=== PATIENT | female | born 1950 | race Caucasian/White ===

== ENCOUNTER 2019-05-04 03:09 | Emergency (ER) | payer OTHER, BC ==
[~2019-05-04] VITALS: Ht 152.4 cm; Wt 73.5 kg
[~2019-05-04 03:09] MED LIST: CALCIUM 600 +1 EAC1 PO; CARDURA2 MG PO; CARVEDILOL25 MG PO; CO Q-10100 MG PO; COUMADIN 2 MG TA2 M1 PO; CYMBALTA30 MG PO; DOXAZOSIN MESYLA2 MG PO; FISH OIL 1,001000 M2 PO; HAIR, SKIN & N1 EAC2 PO; HYDROCHLOROTHIA50 MG PO; HYDROCODON-ACE1 EAC7 PO; KLONOPIN0.5 MG PO; KLOR-CON M1010 MEQ PO; NEURONTIN 300300 M1 PO; NEURONTIN 300M300 M2 PO; NORVASC5 MG PO; OMEPRAZOLE40 MG PO; OXYCONTIN20 M1 PO; PERCOCET 7.5-31 EACH PO; TRAMADOL 50 MG50 MG PO; TRAZODONE 150150 M1 PO; TROSPIUM CHLORI20 MG PO; UNICOMPLEX M TA1 TA1 PO; VITAMIN D1000 UNI2 PO
[2019-05-04 03:39] LABS: ABSOLUTE NEUTROPHILS 9.2 thou/uL (1.4-8.2); BASOPHILS 0.9 % (0.0-2.0); EOSINOPHILS 0.4 % (0.0-3.0); HEMATOCRIT 33.4 % (37.0-47.0); HEMOGLOBIN 11.5 gm/dL (12.0-15.0); LYMPHOCYTES 17.3 % (24.0-44.0); MCH 30.4 pg (26.0-34.0); MCHC 34.6 g/dL (28.0-37.0); MCV 87.9 fL (80.0-100.0); MONOCYTES 7.6 % (1.0-8.0); PLATELET COUNT 253 thou/uL (150-400); POLYS 73.8 % (36.0-66.0); RDW 15.3 % (10.5-14.5); WBC 12.5 thou/uL (4.0-11.0)
[2019-05-04 03:48] LABS: ANION GAP 13 mmol/L (7-16); BUN 42 mg/dL (7-18); CALCIUM 9.3 mg/dL (8.5-10.1); CHLORIDE 105 mmol/L (98-107); CO2 24 mmol/L (21-32); CREATININE 1.7 mg/dL (0.6-1.0); GLUCOSE 166 mg/dL (74-106); POTASSIUM 3.7 mmol/L (3.5-5.1); SODIUM 142 mmol/L (136-145)
[2019-05-04 03:57] LABS: TROPONIN-I <0.06 ng/mL (<0.06)
[2019-05-04 05:00] VITALS: BP 143/68
--- NOTE | 2019-05-06 17:27 | EKG ---
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 : 1950 Requested By: Rajinder Meza Order Number: [id number] MD: Sam Carias Measurements Intervals [place] Rate: 131 P: [place]: QRS: -42 QRSD: 90 T: 88 QT: 354 QTc: 523 Interpretive Statements Atrial fibrillation rapid ventricular response Left axis deviation Left anterior fascicular block LVH with secondary repolarization abnormality Compared to ECG 02/06/2014 08:59:04 Left anterior fascicular block now present Left ventricular hypertrophy now present Sinus rhythm no longer present Electronically Signed On 05-06-2019 17:27:27 CDT by Sam Carias [email or web address] ��������������������������������������������� <ELECTRONICALLY SIGNED> ���������������������������������������� By: Sam Carias MD ��������������������������������������������� 05/06/19 1727 0316 Sam Carias MD /EPI
--- NOTE | 2019-05-06 17:29 | EKG ---
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1950 Requested By: Rajinder Meza Order Number: [id number] MD: Sam Carias Measurements Intervals [place] Rate: 67 P: 56 [place]: 180 QRS: -41 QRSD: 94 T: 74 QT: 460 QTc: 486 Interpretive Statements Sinus rhythm left atrial enlargement Left axis deviation Borderline left anterior fascicular block LVH with secondary repolarization abnormality Compared to ECG 02/06/2014 08:59:04 Atrial fibrillation no longer present Electronically Signed On 05-06-2019 17:29:07 CDT by Sam Carias [email or web address] ��������������������������������������������� <ELECTRONICALLY SIGNED> ���������������������������������������� By: Sam Carias MD ��������������������������������������������� 05/06/19 1729 0350 0350 Sam Carias MD /EPI
== END 2019-05-04 05:04 | disposition home or self-care (01) ==
LOC: ER 03:09
PROVIDERS: Emergency Medicine
DX: I48.0 Paroxysmal atrial fibrillation (principal); R91.8 Other nonspecific abnormal finding of lung field; M79.7 Fibromyalgia; K21.9 Gastro-esophageal reflux disease without esophagitis; F32.9 Major depressive disorder, single episode, unspecified; F41.9 Anxiety disorder, unspecified; Z98.51 Tubal ligation status; Z88.2 Allergy status to sulfonamides

== ENCOUNTER 2019-05-08 23:32 | Inpatient (IN) | payer OTHER, BC ==
[~2019-05-08] VITALS: Ht 152.4 cm; Wt 79.5 kg
[2019-05-08 23:43] VITALS: BP 96/36
[2019-05-09] VITALS (8 sets, daily range): BP systolic 104–147; BP diastolic 40–54
[2019-05-09 00:21] LABS: ABSOLUTE NEUTROPHILS 7.5 thou/uL (1.4-8.2); BASOPHILS 0.6 % (0.0-2.0); EOSINOPHILS 1.1 % (0.0-3.0); HEMATOCRIT 30.3 % (37.0-47.0); HEMOGLOBIN 10.3 gm/dL (12.0-15.0); LYMPHOCYTES 18.3 % (24.0-44.0); MCH 30.2 pg (26.0-34.0); MCHC 33.9 g/dL (28.0-37.0); MCV 88.9 fL (80.0-100.0); MONOCYTES 7.5 % (1.0-8.0); PLATELET COUNT 206 thou/uL (150-400); POLYS 72.5 % (36.0-66.0); RBC 3.41 mil/uL (4.20-5.00); RDW 14.7 % (10.5-14.5); WBC 10.3 thou/uL (4.0-11.0)
[2019-05-09 00:34] LABS: CALCIUM 8.7 mg/dL (8.5-10.1); CREATININE 2.3 mg/dL (0.6-1.0); TROPONIN-I 0.07 ng/mL (<0.06)
[2019-05-09] MEDS ORDERED: COREG25 MG PO (01:24)
[2019-05-09] MEDS ORDERED: XARELTO20 MG PO (01:24)
[2019-05-09] MEDS ORDERED: BUPROPION HCL150 MG PO (01:25)
[2019-05-09] MEDS ORDERED: CLONAZEPAM 0.50.5 M1 PO (01:25)
--- NOTE | 2019-05-09 01:25 | EKG ---
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1950 Requested By: Rajinder Meza Order Number: [id number] MD: Sam Carias Measurements Intervals [place] Rate: 60 P: 53 [place]: 161 QRS: -34 QRSD: 93 T: 69 QT: 472 QTc: 472 Interpretive Statements Sinus rhythm left atrial enlargement Left ventricular hypertrophy Compared to ECG 05/04/2019 03:50:00 no significant changes Electronically Signed On 05-09-2019 1:25:13 CDT by Sam Carias [email or web address] ��������������������������������������������� <ELECTRONICALLY SIGNED> ���������������������������������������� By: Sam Carias MD ��������������������������������������������� 05/09/19 0125 2343 2343 Sam Carias MD /KWAME
[2019-05-09] MEDS ORDERED: LASIX 20 MG TAB20 MG PO (01:26)
[2019-05-09] MEDS ORDERED: ARMODAFINIL150 MG PO (01:26)
[2019-05-09] MEDS ORDERED: TRAZODONE 150150 M1 PO (01:27)
[2019-05-09] MEDS ORDERED: CYMBALTA60 MG PO (01:28)
[2019-05-09] MEDS ORDERED: TRELEGY ELLIPT1 EACH INH (01:28)
[2019-05-09] MEDS ORDERED: LIPITOR40 MG PO (01:29)
[2019-05-09] MEDS ORDERED: OLMESARTAN MEDO20 MG PO (01:29)
[2019-05-09 01:42] LABS: URINE BILIRUBIN NEGATIVE (Negative); URINE BLOOD NEGATIVE (Negative); URINE CLARITY CLEAR; URINE COLOR YELLOW; URINE GLUCOSE-RANDOM* NEGATIVE (Negative); URINE KETONES NEGATIVE (Negative); URINE LEUKOCYTES-REFLEX TRACE (Negative); URINE NITRITE-REFLEX NEGATIVE (Negative); URINE PROTEIN (DIPSTICK) 1+ (Negative); URINE SPECIFIC GRAVITY 1.015 (1.005-1.035); URINE UROBILINOGEN 0.2 E.U./dl (0.2-1.0)
[2019-05-09 02:00] LABS: CASTS None Seen /LPF (None Seen); MUCUS 0-3 Light strn/LPF (None Seen); SQUAMOUS None Seen /LPF (0-3); URINE WBC-REFLEX None Seen /HPF (0-5)
[2019-05-09 02:01] LABS: BACTERIA-REFLEX 1-9 Few /HPF (None Seen); CRYSTALS None Seen /LPF (None Seen); URINE RBC None Seen /HPF (0-2)
--- NOTE | 2019-05-09 04:00 | NUR ---
PT ARRIVED IN CCU FROM ER AT 0335. PT DENIES ANY CHEST PAIN. PT A&O AND DENIED AN DISTRESS OR SOA; PT IS ON RA. NO COMPLAINTS OF CHEST PAIN THE REST OF THE MORNING. FLUIDS STARTED. ECHO ORDERED FOR TODAY. WILL CONTINUE TO MONITOR.
[2019-05-09 06:22] LABS: CALCIUM 8.7 mg/dL (8.5-10.1); CREATININE 2.3 mg/dL (0.6-1.0); POTASSIUM 4.1 mmol/L (3.5-5.1)
--- NOTE | 2019-05-09 09:07 | NUR ---
LAKHWINDER INFORMED ME SHE HAD ULTAM IN HER PURSE. SENT TO PHARMACY FOR LOCKUP AND WILL RETURN TO PATIENT WHEN SHE IS DISCAHRGED.
--- NOTE | 2019-05-09 10:54 | NUR ---
PT OFF UNIT TO ECHO.
--- NOTE | 2019-05-09 12:00 | NUR ---
pt back fromo echo
--- NOTE | 2019-05-09 12:57 | 2DMMODE ---
[facility] [address] [place] [address] 2 D/M-MODE ECHOCARDIOGRAM Name: VIMAL STOLL Room #: 210-P ADM IN ..#: [id number] ������������� Admission: 05/09/19 ������������� Attend Phys: Robin Mendieta MD Discharge: ��� ������������� ��� Date of : 50 Date of Service: 05/09/19 1257 �� Report #: [id number] �������� ��������������������������������������������[id number] THIS REPORT FOR: //name// APPROVED REPORT Study performed: 05/09/2019 11:03:46 EXAM: Comprehensive 2D, Doppler, and color-flow Echocardiogram Patient Location: Echo lab Room #: 210 Status: routine BSA: 1.72 HR: 66 bpm BP: 138/54 mmHg Rhythm: NSR Other Information Study Quality: Good Indications Elevated troponin, chest pain, Aortic stenosis. Hx: CHF, Afib 2D Dimensions RVDd: 38.71 mm IVSd: 15.33 (7-11mm) LVOT Diam: 20.05 (18-24mm) LVDd: 42.84 mm PWd: 15.29 (7-11mm) Ascending Ao: 28.15 (22-36mm) LVDs: 21.81 (25-40mm) Aortic Root: 32.79 mm Volumes Left Atrial Volume (Systole) Single Plane 4CH: 85.22 mL Single Plane 2CH: 79.08 mL LA ESV Index: 50.00 mL/m2 Aortic Valve AoV Peak Meliton.: 3.82 m/s AO Peak Gr.: 58.28 mmHg LVOT Max P.31 mmHg AO Mean Gr.: 31.71 mmHg AO V2 Mean: 2.64 m/s LVOT Max V: 1.35 m/s AO V2 VTI: 89.04 cm DANITA Vmax: 1.12 cm2 Mitral Valve E/A Ratio: 1.2 [facility] [place] [address] 2 D/M-MODE ECHOCARDIOGRAM Name: VIMAL STOLL Room #: 210-P [facility] IN ..#: [id number] ������������� Admission: 05/09/19 ������������� Attend Phys: Robin Mendieta MD Discharge: ��� ������������� ��� Date of : 50 Date of Service: 05/09/19 1257 �� Report #: [id number] �������� ��������������������������������������������[id number] MV Decel. Time: 261.33 ms MV E Max Meliton.: 1.42 m/s MV A Meliton.: 1.19 m/s MV PHT: 75.79 ms IVRT: 73.82 ms Pulmonary Valve PV Peak Meliton.: 1.10 m/s PV Peak Gr.: 4.84 mmHg Tricuspid Valve TR Peak Meliton.: 2.92 m/s RAP Estimate: 5.00 mmHg TR Peak Gr.: 34.07 mmHg PA Pressure: 39.00 mmHg Left Ventricle The left ventricle is normal size. There is normal LV segmental wall motion. Moderate concentric left ventricular hypertrophy. Left ventricular systolic function is normal. LVEF is 65-70%. Moderate diastolic dysfunction is present (pseudonormal filling). Right Ventricle The right ventricle is normal size. The right ventricular systolic function is normal. Atria Left atrium is moderately dilated. The right atrium size is normal. Aortic Valve Aortic valve is moderately calcified. Trace to mild aortic regurgitation. There is moderate valvular aortic stenosis. Calculated aortic valve area is 1.1 cm2 with maximum pressure gradient of 58 mmHg and mean pressure gradient of 32 mmHg. Mitral Valve Moderate mitral annular calcification. Trace mitral regurgitation. No evidence of mitral valve stenosis. Tricuspid Valve The tricuspid valve is normal in structure. Trace to mild tricuspid regurgitation. Estimated PAP is 40mmHg. Pulmonic Valve The pulmonary valve is normal in structure. Trace pulmonic regurgitation. [facility] [address] [place] [address] 2 D/M-MODE ECHOCARDIOGRAM Name: VIMAL STOLL Room #: 210-P [facility] IN [facility]#: [id number] ������������� Admission: 05/09/19 ������������� Attend Phys: Robin Mendieta MD Discharge: ��� ������������� ��� Date of : 50 Date of Service: 05/09/19 1257 �� Report #: [id number] �������� ��������������������������������������������[id number] [employer] The aortic root is normal in size. The ascending aorta is normal in size. IVC is normal in size and collapses >50% with inspiration. Pericardium There is no pericardial effusion. <Conclusion> Left ventricular systolic function is normal. There is normal LV segmental wall motion. LVEF is 65-70%. Moderate diastolic dysfunction Left atrium is moderately dilated. Aortic valve is moderately calcified, moderately stenotic. Calculated aortic valve area is 1.1 cm2 with maximum pressure gradient of 58 mmHg and mean pressure gradient of 32 mmHg. Moderate mitral annular calcification. Trace mitral regurgitation. Trace to mild tricuspid regurgitation. Estimated pulmonary artery pressure of 40mmHg. There is no pericardial effusion. ��������������������������������������������� <ELECTRONICALLY SIGNED> ���������������������������������������� By: Low Hsu MD, FACC ��������������������������������������������� 05/09/19 1257 1257 1257 Low Hsu MD, FACC /INF
--- NOTE | 2019-05-09 18:00 | NUR ---
PT HAD LOOP MONITOR PLACED AT BEDSIDE TODAY. TOLERATING PO WELL. WILL CONTINUE TO ASSESS.
[2019-05-10 03:51] VITALS: BP 150/59
--- NOTE | 2019-05-10 06:00 | NUR ---
PT SLEPT MOST OF NOCT. LEFT CHEST DSG DRY AND INTACT. LUNGS CLEAR REMAINS IN SINUS RHYTHM. UP TO TOILET. VOIDING. DENIES CHEST PAIN NOR SOA WILL CONT TO MONITOR.
[2019-05-10 07:26] VITALS: BP 163/33
[2019-05-10 12:21] VITALS: BP 172/60
[2019-05-10] MEDS ORDERED: XARELTO15 MG PO (12:46)
[2019-05-10] MEDS ORDERED: CARVEDILOL12.5 MG PO (12:49)
[2019-05-10] MEDS ORDERED: FLECAINIDE ACET50 M2 PO (12:49)
[2019-05-10] MEDS ORDERED: ASPIR 8181 MG PO (12:50)
[2019-05-10] MEDS ORDERED: PROTONIX40 M1 PO (12:51)
[2019-05-10 13:07] LABS: CALCIUM 8.5 mg/dL (8.5-10.1); POTASSIUM 4.4 mmol/L (3.5-5.1)
[2019-05-10 13:12] VITALS: BP 172/60
--- NOTE | 2019-05-10 14:17 | NUR ---
ASSUMED CARE OF PT AT SHIFT CHANGE. ASSESSMENTS CHARTED. MEDS GIVEN PER DEC. PT ALERT AND ORIENTED, NO C/O PAIN, DENIES CHEST PAIN, SOB. O2 SATS WNL ON ROOM AIR. UP SBA TOLERATING WELL. LOOP RECORDER SITE CDI. DC ORDERS ACKNOWLEDGED AND IMPLEMEMTED. DC PAPERWORK DISUSSED WITH PT. COMMUNICATES UNDERSTANDING. IV REMOVED TELE REMOVED. PT LEFT UNIT AT APPROX 1400 WITH ALL BELONINGS ACCOMPANIED BY SPOUSE.
--- NOTE | 2019-05-10 18:17 | EKG ---
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 : 1950 Requested By: Meme Ash Order Number: [id number] MD: Low Hsu Measurements Intervals [place] Rate: 63 P: 49 GA: 214 QRS: -35 QRSD: 94 T: 102 QT: 462 QTc: 474 Interpretive Statements Sinus rhythm Borderline prolonged GA interval LVH with secondary repolarization abnormality Compared to ECG 05/08/2019 23:43:16 GA interval has lengthened Electronically Signed On 05-10-2019 18:17:02 CDT by Low Hsu [email or web address] ��������������������������������������������� <ELECTRONICALLY SIGNED> ���������������������������������������� By: Low Hsu MD, [facility] ��������������������������������������������� 05/10/19 1817 1 1 Low Hsu MD, [facility] /EPI
--- NOTE | 2019-05-11 12:10 | P ---
[facility] [place] [address] PROCEDURE REPORT Name: ALICIA STOLLLorri Kerns Room #: 210-P [facility] IN ..#: [id number] Admission: 05/09/19 ������������������ Attend Phys: Robin Mendieta MD Discharge: 05/10/19 ������������������ Date of : 50 Report #: [id number] THIS REPORT FOR: //name// CC: Serge Mendieta DATE OF SERVICE: 05/09/2019 IMPLANTABLE LOOP RECORDER INSERTION PREOPERATIVE DIAGNOSIS: Palpitations. POSTOPERATIVE DIAGNOSIS: Palpitations. HISTORY: The patient is a 68-year-old with history of atrial fibrillation who presented to the Emergency Room twice in the past week with palpitations and has been in normal sinus rhythm. She is here for implantable loop recorder insertion. DESCRIPTION OF PROCEDURE: The patient underwent informed consent. She was prepped and draped in a sterile fashion. I injected lidocaine at the incision site. Incision was made. The device was injected under the skin and a single layer of suture was performed. Surgical glue was placed at the outer skin layer. There were no procedure related complications. The implanted device was a [employer] model number [id number], serial number [id number]. The device was programmed to its nominal settings. ��������������������������������������������� <ELECTRONICALLY SIGNED> ���������������������������������������� By: Josh Carpenter MD ��������������������������������������������� 05/11/19 1210 1322 0308 Josh Carpenter MD /nt
== END 2019-05-10 13:57 | disposition home or self-care (01) | DRG 260 ==
LOC: ER 23:32 → 2N 05-09 02:14 → EROBS 05-09 02:14 → 2N 05-09 03:39 → ENTRNSPT 05-10 13:49 → EDTRNSPTSTS 05-10 13:51 → 2N 05-10 13:57
PROVIDERS: Emergency Medicine; Nurse Practitioner; Nurse Practitioner Family; ADMIT Hospitalist
PROC: 0JH602Z Insertion of Monitoring Device into Chest Subcutaneous Tissue and Fascia, Open Approach (ICD-10-PCS; principal; 2019-05-09)
DX: I48.0 Paroxysmal atrial fibrillation (principal); N17.0 Acute kidney failure with tubular necrosis; K21.9 Gastro-esophageal reflux disease without esophagitis; M79.7 Fibromyalgia; F32.9 Major depressive disorder, single episode, unspecified; F41.9 Anxiety disorder, unspecified; E78.5 Hyperlipidemia, unspecified; I35.0 Nonrheumatic aortic (valve) stenosis; N18.9 Chronic kidney disease, unspecified; E11.22 Type 2 diabetes mellitus with diabetic chronic kidney disease; I12.9 Hypertensive chronic kidney disease with stage 1 through stage 4 chronic kidney disease, or unspecified chronic kidney disease; E11.51 Type 2 diabetes mellitus with diabetic peripheral angiopathy without gangrene; Z90.49 Acquired absence of other specified parts of digestive tract; Z93.3 Colostomy status; Z79.01 Long term (current) use of anticoagulants; Z79.899 Other long term (current) drug therapy; Z88.2 Allergy status to sulfonamides; Z87.01 Personal history of pneumonia (recurrent)
CPT/HCPCS: 10081

== ENCOUNTER 2019-05-24 15:03 | Inpatient (IN) | payer OTHER, BC ==
[~2019-05-24] VITALS: Ht 157.5 cm; Wt 79.2 kg
[~2019-05-24 15:03] MED LIST changes: +ARMODAFINIL150 MG PO; +ASPIR 8181 MG PO; +BUPROPION HCL150 MG PO; +CARVEDILOL12.5 MG PO; +CLONAZEPAM 0.50.5 M1 PO; +COREG25 MG PO; +CYMBALTA60 MG PO; +FLECAINIDE ACET50 M2 PO; +LASIX 20 MG TAB20 MG PO; +LIPITOR40 MG PO; +OLMESARTAN MEDO20 MG PO; +PROTONIX40 M1 PO; +TRELEGY ELLIPT1 EACH INH; +XARELTO15 MG PO; +XARELTO20 MG PO
[2019-05-24 15:48] VITALS: BP 105/31
[2019-05-24] MEDS ORDERED: NEURONTIN 300300 M1 (16:30)
[2019-05-24] MEDS ORDERED: CARDURA4 MG PO (16:40)
[2019-05-24] MEDS ORDERED: TYLENOL325 MG PO (16:41)
[2019-05-24] MEDS ORDERED: TRAMADOL 50 MG50 MG PO (16:42)
[2019-05-24 18:08] LABS: ABSOLUTE NEUTROPHILS 6.3 thou/uL (1.4-8.2); BASOPHILS 0.6 % (0.0-2.0); EOSINOPHILS 2.2 % (0.0-3.0)
[2019-05-24 18:09] LABS: LYMPHOCYTES 10.2 % (24.0-44.0); MCH 29.4 pg (26.0-34.0); MCHC 33.1 g/dL (28.0-37.0); MCV 88.9 fL (80.0-100.0); MONOCYTES 8.6 % (1.0-8.0); PLATELET COUNT 249 thou/uL (150-400); POLYS 78.4 % (36.0-66.0); RBC 2.12 mil/uL (4.20-5.00); RDW 14.8 % (10.5-14.5)
[2019-05-24 18:12] LABS: HEMATOCRIT 18.8 % (37.0-47.0); HEMOGLOBIN 6.2 gm/dL (12.0-15.0)
[2019-05-24 18:24] LABS: ALBUMIN 2.8 g/dL (3.4-5.0); CALCIUM 9.2 mg/dL (8.5-10.1); CREATININE 2.1 mg/dL (0.6-1.0); POTASSIUM 4.5 mmol/L (3.5-5.1); TOTAL BILIRUBIN 0.3 mg/dL (<0.1-1.0); TOTAL PROTEIN 6.1 g/dL (6.4-8.2); TROPONIN-I 0.25 ng/mL (<0.06)
[2019-05-24 19:50] VITALS: BP 105/54
[2019-05-24 22:37] VITALS: BP 140/44; BP 147/52
[2019-05-24 22:55] LABS: % SATURATION 8 % (20-39); IRON 22 ug/dL (50-170); TIBC 269 ug/dL (250-450)
[2019-05-24 23:49] LABS: FOLIC ACID 85.1 ng/mL (8.6-58.9)
[2019-05-25] VITALS (7 sets, daily range): BP systolic 104–147; BP diastolic 33–48
[2019-05-25 06:35] LABS: ABSOLUTE NEUTROPHILS 8.1 thou/uL (1.4-8.2); BASOPHILS 1.3 % (0.0-2.0); EOSINOPHILS 1.3 % (0.0-3.0); HEMATOCRIT 20.9 % (37.0-47.0); HEMOGLOBIN 7.1 gm/dL (12.0-15.0); LYMPHOCYTES 6.8 % (24.0-44.0); MCH 29.2 pg (26.0-34.0); MCHC 33.9 g/dL (28.0-37.0); MCV 86.2 fL (80.0-100.0); MONOCYTES 7.7 % (1.0-8.0); PLATELET COUNT 260 thou/uL (150-400); POLYS 82.9 % (36.0-66.0); RBC 2.42 mil/uL (4.20-5.00); RDW 15.6 % (10.5-14.5); WBC 9.8 thou/uL (4.0-11.0)
[2019-05-25 06:57] LABS: CALCIUM 9.2 mg/dL (8.5-10.1); CREATININE 2.3 mg/dL (0.6-1.0); POTASSIUM 4.1 mmol/L (3.5-5.1); TROPONIN-I 0.19 ng/mL (<0.06)
--- NOTE | 2019-05-25 08:47 | EKG ---
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1950 Requested By: Evon Giron Order Number: [id number] MD: Low Hsu Measurements Intervals [place] Rate: 83 P: 51 [place]: 188 QRS: -37 QRSD: 100 T: 132 QT: 421 QTc: 495 Interpretive Statements Sinus rhythm Abnormal R-wave progression, late transition Nonspecific ST and T wave abnormality Borderline prolonged QT interval Compared to ECG 05/09/2019 07:22:49 ST and T wave abnormality is more pronounced Electronically Signed On 05-25-2019 8:47:48 CDT by Low Hsu [email or web address] <ELECTRONICALLY SIGNED> By: Low Hsu MD, [facility] 05/25/19 0847 Low Hsu MD, [facility] /EPI
[2019-05-25] MEDS ORDERED: COREG25 MG PO (11:04)
[2019-05-25] MEDS ORDERED: MAGOX 400400 MG PO (11:06)
[2019-05-25] MEDS ORDERED: NORVASC5 MG PO (11:06)
[2019-05-25] MEDS ORDERED: GLUCOPHAGE XR500 MG PO (11:07)
[2019-05-25] MEDS ORDERED: ZETIA10 MG PO (11:07)
[2019-05-25] MEDS ORDERED: KLOR-CON 1010 MEQ PO (11:07)
[2019-05-25 15:46] LABS: URINE BILIRUBIN NEGATIVE (Negative); URINE BLOOD NEGATIVE (Negative); URINE CLARITY CLEAR; URINE COLOR YELLOW; URINE GLUCOSE-RANDOM* NEGATIVE (Negative); URINE KETONES NEGATIVE (Negative); URINE LEUKOCYTES NEGATIVE (Negative); URINE NITRITE NEGATIVE (Negative); URINE PROTEIN (DIPSTICK) 1+ (Negative); URINE UROBILINOGEN 0.2 E.U./dl (0.2-1.0)
[2019-05-25 15:55] LABS: CASTS None Seen /LPF (None Seen); SQUAMOUS 0-3 Few /LPF (0-3); URINE RBC None Seen /HPF (0-2); URINE WBC 0-5 Rare /HPF (0-5)
[2019-05-25 15:56] LABS: AMORPHOUS URATES Few /LPF (None Seen); BACTERIA None Seen /HPF (None Seen)
[2019-05-25 16:00] LABS: PROT/CREAT RATIO 3.9; URINE CREATININE-RANDOM* 43.3 mg/dL; URINE PROTEIN-RANDOM* 167.3 mg/dL (<11.9)
[2019-05-25 21:20] LABS: COMPLEMENT-C3 181 mg/dL (82-167); COMPLEMENT-C4 54 mg/dL (14-44)
[2019-05-25 22:26] LABS: HEMATOCRIT 18.9 % (37.0-47.0); HEMOGLOBIN 6.3 gm/dL (12.0-15.0)
[2019-05-26] VITALS (7 sets, daily range): BP systolic 104–149; BP diastolic 40–81
[2019-05-26 05:58] LABS: HEMATOCRIT 22.1 % (37.0-47.0); HEMOGLOBIN 7.4 gm/dL (12.0-15.0); MCH 29.4 pg (26.0-34.0); MCHC 33.5 g/dL (28.0-37.0); MCV 87.8 fL (80.0-100.0); RBC 2.52 mil/uL (4.20-5.00); RDW 15.3 % (10.5-14.5); WBC 8.5 thou/uL (4.0-11.0)
[2019-05-26 06:06] LABS: ALBUMIN 2.2 g/dL (3.4-5.0); CALCIUM 8.5 mg/dL (8.5-10.1); CREATININE 1.9 mg/dL (0.6-1.0); PHOSPHORUS 5.5 mg/dL (2.5-4.9); POTASSIUM 4.5 mmol/L (3.5-5.1)
[2019-05-26 13:07] LABS: ANTI-DNA SCREEN <1 IU/mL (0-9); ANTI-RNP <0.2 AI (0.0-0.9); KAPPA/LAMBDA RATIO 511.23 (0.26-1.65); LAMBDA FREE LIGHT CHAINS 5.7 mg/L (5.7-26.3)
[2019-05-27 04:27] VITALS: BP 122/40
[2019-05-27 04:45] LABS: HEMOGLOBIN 6.5 gm/dL (12.0-15.0); WBC 6.8 thou/uL (4.0-11.0)
[2019-05-27 04:47] LABS: MCH 29.3 pg (26.0-34.0); MCHC 33.8 g/dL (28.0-37.0); MCV 86.7 fL (80.0-100.0); RBC 2.22 mil/uL (4.20-5.00); RDW 15.3 % (10.5-14.5)
[2019-05-27 04:58] LABS: HEMATOCRIT 19.3 % (37.0-47.0)
[2019-05-27 05:20] LABS: ALBUMIN 2.3 g/dL (3.4-5.0); CALCIUM 8.6 mg/dL (8.5-10.1); CREATININE 1.9 mg/dL (0.6-1.0); PHOSPHORUS 4.9 mg/dL (2.5-4.9); POTASSIUM 4.4 mmol/L (3.5-5.1)
[2019-05-27 06:17] VITALS: BP 132/48; BP 144/54; BP 146/50
[2019-05-27 07:56] VITALS: BP 148/51
[2019-05-27 14:07] LABS: GLOBULIN TOTAL 2.4 g/dL (2.2-3.9); M-SPIKE Not Observed g/dL (Not Observed)
[2019-05-27 15:36] VITALS: BP 163/59
[2019-05-27 21:20] VITALS: BP 171/63
[2019-05-28 05:29] LABS: ALBUMIN 2.6 g/dL (3.4-5.0); CALCIUM 8.8 mg/dL (8.5-10.1); CREATININE 1.6 mg/dL (0.6-1.0); POTASSIUM 3.7 mmol/L (3.5-5.1)
[2019-05-28 05:34] VITALS: BP 161/61
[2019-05-28 08:24] LABS: HEMATOCRIT 22.9 % (37.0-47.0); HEMOGLOBIN 7.8 gm/dL (12.0-15.0)
[2019-05-28 11:53] VITALS: BP 171/58
[2019-05-28 16:09] VITALS: BP 130/44
[2019-05-28 19:46] VITALS: BP 150/52
[2019-05-29 04:47] VITALS: BP 137/61
[2019-05-29 05:11] LABS: HEMOGLOBIN 7.5 gm/dL (12.0-15.0); MCH 29.7 pg (26.0-34.0); MCHC 34.2 g/dL (28.0-37.0); MCV 86.8 fL (80.0-100.0); RBC 2.54 mil/uL (4.20-5.00); RDW 15.1 % (10.5-14.5)
[2019-05-29 05:13] LABS: ALBUMIN 2.5 g/dL (3.4-5.0); CALCIUM 8.7 mg/dL (8.5-10.1); CREATININE 1.5 mg/dL (0.6-1.0); PHOSPHORUS 4.7 mg/dL (2.5-4.9); POTASSIUM 3.9 mmol/L (3.5-5.1)
[2019-05-29 08:25] VITALS: BP 152/51
[2019-05-29 12:58] VITALS: BP 147/48
[2019-05-29 15:52] VITALS: BP 167/55
[2019-05-29 19:06] VITALS: BP 169/59
[2019-05-30 03:30] VITALS: BP 160/63
[2019-05-30 05:17] LABS: ALBUMIN 2.6 g/dL (3.4-5.0); CALCIUM 8.9 mg/dL (8.5-10.1); CREATININE 1.7 mg/dL (0.6-1.0); PHOSPHORUS 4.7 mg/dL (2.5-4.9); POTASSIUM 4.1 mmol/L (3.5-5.1)
[2019-05-30 07:50] VITALS: BP 179/68
[2019-05-30 11:25] VITALS: BP 164/56
--- NOTE | 2019-05-30 15:06 | PATH ---
[facility] [place] [address] PATHOLOGY RPT PROCEDURE Name: CRISTINA STOLL Room #: 214-P ADM IN M.R.#: [id number] Admission: 05/24/19 Date of : 50 Discharge: Report #: [id number] Path Case #: [id number] [facility] Accession Number: [id number] . 01 Material submitted: . PART A: small bowel - BX SMALL BOWEL R/O CELIAC DZ PART B: stomach - BX ANTRUM R/O H PYLORI PART C: esophagus - BX DISTAL ESOPHAGUS R/O BARRETTS. Modifiers: distal . 01 Clinical history: . Pre-OP DX: GI bleed Post-OP DX: Esophagitis, gastritis, hiatal hernia . 02 Diagnosis: A. Small bowel, biopsy: - No pathologic diagnosis. - Normal villous architecture. . B. Stomach, antrum, biopsy: - Chronic superficial gastritis, mild. - Intestinal metaplasia present; no evidence of dysplasia. - No evidence of Helicobacter pylori on immunoperoxidase stain. . C. Esophagus, distal, biopsy: - Squamocolumnar epithelium with mild chronic inflammation. - No evidence of intestinal metaplasia. (ANOOP:leonid; 05/30/2019) QTP05/30/2019 . 02 Electronically signed: . Sami Palomino MD, Pathologist NPI- [id number] . 01 Gross description: . A. Received in formalin labeled "[place], Cristina, BX small bowel, rule out celiac," are 2 segments of rowe soft tissue measuring 0.7 x 0.3 x 0.2 cm in aggregate dimensions and ranging from 0.3 to 0.4 cm in maximum dimension. The specimen is submitted entirely in cassette A1. . B. Received in formalin labeled "[place], Cristina, BX antrum, rule out H. pylori," are 3 segments of rowe soft tissue measuring 0.8 x 0.5 x 0.2 cm in aggregate dimensions and measuring 0.3 cm each in maximum dimension. The specimen is submitted entirely in cassette B1. . C. Received in formalin labeled "[place], Cristina, BX distal esophagus, rule out Pulido's," is a single segment of rowe soft tissue measuring 0.3 cm in maximum dimension. The specimen is [place] [address] PATHOLOGY RPT PROCEDURE Name: ALICIA STOLLLorri Kerns Room #: 214-P [facility] M.R.#: [id number] Admission: 05/24/19 Date of : 50 Discharge: Report #: [id number] Path Case #: [id number] C1. (TSD; 05/27/2019) TOB/TOB . 02 Pathologist provided ICD-10: K29.30, K20.9 . 02 CPT . 868989, 455434, 953435, K84906 Specimen Comment: A courtesy copy of this report has been sent to Specimen Comment: [phone], , . Specimen Comment: Report sent to ,DR GUERRERO / DR SANDERS Performed at: 01 [facility] [address], [place] [id number] MD Cornel Bui MD Phone: [phone] Performed at: [address] [facility] [id number] MD Rena Gutierrez MD Phone: [phone]
--- NOTE | 2019-05-30 16:06 | P ---
[facility] [place] [address] PROCEDURE REPORT Name: VIMAL STOLL Room #: 214-P [facility] IN M.R.#: [id number] Admission: 05/24/19 Attend Phys: Josh Carpetner MD Discharge: Date of : 50 Report #: [id number] THIS REPORT FOR: //name// CC: Serge Carpenter BRIEF HISTORY: The patient is a 68-year-old woman with anemia, requiring transfusion. She does have a history of colon polyps. Father had colon cancer. PREOPERATIVE DIAGNOSES: Rectal bleeding, history of colon polyps, family history of colon cancer. POSTOPERATIVE DIAGNOSES: 1. Diminutive colon polyps. 2. Moderate sigmoid diverticulosis coli. 3. Deformed cecum consistent with previous surgery. MEDICATIONS: Deep sedation with propofol per anesthesia. SPECIMENS: 1. Diminutive polyp, mid ascending colon. 2. Diminutive polyp, mid transverse colon. ESTIMATED BLOOD LOSS: 3 mL. PROCEDURE: Colonoscopy to cecum and terminal ileum with biopsy. FINDINGS: Prior to propofol sedation, procedure of colonoscopy discussed with the patient as well as potential risks and its complications. She indicates she understands and desires to proceed. DESCRIPTION OF PROCEDURE: With the patient in left lateral decubitus position, the Olympus video colonoscope was introduced in the rectum, advanced under direct vision to the cecum. Done with minimal difficulty. The cecum was identified by the ileocecal valve and the appendiceal orifice. I was able to visualize the distal segment of terminal ileum, which was inspected and noted to be unremarkable. There is no evidence of mucosal lesions or blood or bleeding. At that point, the scope was slowly withdrawn and careful circumferential views were obtained. There was some deformity in the cecum consistent with her previous surgery. Appendiceal orifice was identified and noted to be unremarkable. The ileocecal valve was unremarkable. At that point, the scope was withdrawn and careful circumferential views obtained. Overall, the prep was good. The mucosa was within normal limits, normal vascular pattern, normal light reflex. As we withdrew the scope, no abnormalities were noted until the mid ascending colon was reached at which point a diminutive polyp was seen and removed with biopsy forceps. The scope was further withdrawn and another diminutive polyp was seen and removed with biopsy forceps from the mid [facility] [address] [place] [address] PROCEDURE REPORT Name: ALICIA STOLLLorri Kerns Room #: 214-P [facility] IN [facility].#: [id number] Admission: 05/24/19 Attend Phys: Josh Carpenter MD Discharge: Date of : 50 Report #: [id number] transverse colon. The remainder of the exam was normal down to the sigmoid colon. The mucosa was normal. In the sigmoid, however, she was noted to have moderate sigmoid diverticular disease without endoscopic evidence of diverticulitis. The scope was withdrawn into the rectum and no abnormalities were seen. Upon retroflexion, no abnormalities were seen. Scope was withdrawn. The patient tolerated the procedure well. CONDITION OF THE PATIENT UPON DISCHARGE: Following procedure, the patient was drowsy and taken to recovery area in good condition. DISPOSITION: The patient with anemia. She had had some dark stools. Upper endoscopy recently completed. I do not see specific lesions as far as the potential source of blood loss. The polyps were small and I doubt that they were related to her recent blood loss. Continue to monitor hemoglobin. If there remains further concern, an M2 capsule study could be considered at a later date. <ELECTRONICALLY SIGNED> By: Gennaro Valenzuela MD 05/30/19 1606 0910 1136 Gennaro Valenzuela MD /nt
[2019-05-30 16:30] VITALS: BP 143/52
[2019-05-30] MEDS ORDERED: ASA5UEC PO (16:56)
[2019-05-30] MEDS ORDERED: MUCINEX600 MG PO (16:56)
[2019-05-30] MEDS ORDERED: BYSTOLIC10 MG PO (16:56)
[2019-05-30] MEDS ORDERED: NEURONTIN 300300 M1 PO (16:56)
[2019-05-30] MEDS ORDERED: COLACE 100 MG100 MG PO (16:56)
[2019-05-30] MEDS ORDERED: IPRAT-ALBUT 0.5-3 ML INH (16:56)
[2019-05-30] MEDS ORDERED: GLYBURIDE 2.52.5 MG PO (16:56)
[2019-05-30 17:39] VITALS: BP 164/56
--- NOTE | 2019-06-01 11:10 | HC ---
[facility] [address] [place] [address] CONSULTATION Name: ALICIA STOLLLorri Kerns Room #: 214-P [facility] IN .R.#: [id number] Admission: 05/24/19 Attend Phys: Josh Carpenter MD Discharge: 05/30/19 Date of : 50 Report #: [id number] THIS REPORT FOR: //name// CC: Serge Carpenter REASON FOR CONSULTATION: Elevated creatinine. HISTORY OF PRESENT ILLNESS: This 68-year-old patient with moderate aortic stenosis had a prior bout of acute kidney injury 6 years ago related to a febrile septic illness at [facility]. She underwent dialysis but recovered. Apparently, her creatinine was less than 1 until last fall when it started to rise, now progressively up to greater than 2 without a specific inciting etiology that has been found. She recently had developed atrial fibrillation with rapid ventricular response, has been treated with flecainide and Xarelto, but now has been admitted with left-sided chest and left-sided abdominal discomfort, somewhat of a pleuritic nature and progressive shortness of air. She was admitted and found to have a hemoglobin of only 6.2. Of note, she has had low hemoglobin over the last several months or more, has had extensive workup at [facility] including colonoscopy and endoscopy and capsule endoscopy. She did have a polyp that was found and removed and she has had heme-positive stools through that time. PAST MEDICAL HISTORY: The patient has a history of fibromyalgia for several years, peripheral arterial disease and has peripheral arterial stent in her left iliac system, which was placed as an outpatient. She had longstanding hypertension, on several medications apparently fairly well controlled according to the patient. She has not specifically had angina, myocardial infarction. She does have occasional leg swelling and had been on a diuretic for some time, but not anymore. PAST SURGICAL HISTORY: Includes previous right knee replacement. She had a perforated colon from a procedure many years ago and had surgery with partial colectomy at that time. HOME MEDICATIONS: Include armodafinil 75 mg daily, aspirin 81 mg daily, atorvastatin 40 mg daily, bupropion 150 mg daily, carvedilol 12.5 mg b.i.d., clonazepam 0.5 mg at bedtime, doxazosin 4 mg daily, Cymbalta 60 mg b.i.d., flecainide 50 mg b.i.d., Trelegy Ellipta inhaler every day, furosemide 20 mg daily, gabapentin 300 mg daily, olmesartan 20 mg daily, Protonix 40 mg daily, Xarelto 15 mg daily, tramadol 50 mg daily, trazodone 150 mg at bedtime. FAMILY HISTORY: Strongly positive for coronary artery disease and father had quadruple bypass. Two brothers with coronary artery disease, one who has and hypertension [place] [address] CONSULTATION Name: ALICIA STOLLLorri Kerns Room #: 214-P [facility] IN M.R.#: [id number] Admission: 05/24/19 Attend Phys: Josh Carpenter MD Discharge: 05/30/19 Date of : 50 Report #: [id number] REVIEW OF SYSTEMS: GENERAL: She has been feeling poorly. EYES: Her vision has been alright. ENT: Hearing okay, swallows okay. No mouth sores or ulcers. ENDOCRINE: No diabetes or thyroid disease. RESPIRATORY: Somewhat easily short winded, especially with any exertion. CARDIAC: No sayda angina. She has had the palpitations, AFib RVR as mentioned. GASTROINTESTINAL: No nausea, vomiting or diarrhea. GENITOURINARY: Good urinary stream without dysuria, hematuria, or renal stones. NEUROLOGIC: She denies seizure, syncope, stroke or neuropathy. PSYCHOLOGIC: She has had quite a bit of anxiety. MUSCULOSKELETAL: She has had the fibromyalgia, pain mostly in the neck and shoulder area and the hip areas. SOCIAL HISTORY: Former smoker, but she quit 22 years ago. No substantial alcohol. PHYSICAL EXAMINATION: GENERAL: This is a somewhat chronically ill-appearing patient, in no acute distress. SKIN: No rashes are noted. SKELETAL: Well developed, well nourished. No amputations. HEENT: Extraocular movements are full. No scleral icterus. Hearing and vision are intact. Mucous membranes are moist. The tongue and buccal mucosa appear benign. NECK: Supple, no carotid bruits, lymphadenopathy or thyromegaly are noted. CHEST: Shows some scanty crackles in the left upper and right lower chest. HEART: Regular with a prominent systolic ejection murmur. ABDOMEN: Soft and nontender, without bruits, masses or organomegaly. EXTREMITIES: Show no edema. Pulses intact. NEUROLOGIC: Intact. LABORATORY DATA: Hemoglobin was 6.2. Received transfusion, now 7.1. Platelets 260, white count 9.8. Sodium 137, potassium 4.1, chloride 102, bicarbonate 23, BUN 50, creatinine 2.3, albumin is 2.8. Troponin was a bit high 0.25 and 0.19 and iron slightly low at 22 with a saturation of only 8%. ASSESSMENT AND PLAN: 1. Acute and chronic kidney disease. Her creatinine has been rising. She had the previous episode of acute kidney injury, which certainly predisposes her to some ongoing kidney injury. I will quantitate her proteinuria, do paraprotein studies. I will need to check serologies here. I do urinalysis to look at the urine sediment. A renal sonogram is also indicated. 2. Exertional dyspnea. This could entirely be related to her low hemoglobin, although the aortic valve is likely playing a role here as well in terms of her [facility] [address] [place] [address] CONSULTATION Name: JERMANVIMAL J Room #: 214-P [facility] IN .R.#: [id number] Admission: 05/24/19 Attend Phys: Josh Carpenter MD Discharge: 05/30/19 Date of : 50 Report #: [id number] symptoms. She does have a fairly substantial gradient noted. 3. Severe anemia. She is iron deficient. Other etiologies must be considered as well including paraprotein disorder. 4. Atrial fibrillation with rapid ventricular response, seems to be controlled at this time on flecainide, carvedilol, Xarelto. 5. History of [place] spotted fever with acute kidney injury, resolved. 6. Longstanding hypertension, obviously relatively difficult with the multiple medications that she has been on. Renal artery stenosis must also be considered in this patient who has peripheral arterial disease and renal arterial Dopplers may be of some value possibly limit angiography should she need a heart angiogram as well. 7. History of fibromyalgia, on gabapentin and Cymbalta. 8. Pulmonary infiltrates. She has got some infiltrates. She is afebrile, does not have an elevated white count. <ELECTRONICALLY SIGNED> By: Jimmy Jordan MD 06/01/19 1110 0912 1200 Jimmy Jordan MD /nt
--- NOTE | 2019-06-01 21:50 | HC ---
[facility] [address] [address] CONSULTATION Name: VIMAL STOLL Room #: 214-P [facility] IN M.R.#: [id number] Admission: 05/24/19 Attend Phys: Josh Carpenter MD Discharge: 05/30/19 Date of : 50 Report #: [id number] THIS REPORT FOR: //name// CC: Serge Carpenter DATE OF SERVICE: 05/28/2019 HISTORY OF PRESENT ILLNESS: This patient is seen in consultation regarding findings of abnormal free light chain assay/proteinuria. She was admitted emergently following a visit at [facility] by Dr. Carpenter for feelings of not feeling well and a history of paroxysmal atrial fibrillation, hypertension and chronic kidney disease. On admission, she was also found to be anemic without any blood loss. She had a colonoscopy in the past, which was negative. Does have a history of colon cancer in her family. She denies any sweats, chills, fevers or unintended weight loss. She has no palpable adenopathy or masses. PAST MEDICAL HISTORY: Significant for chronic renal failure. This happened after a bout of [place] spotted fever. She was admitted for hospital and temporary hemodialysis for approximately 6 weeks. She has been left with a creatinine in the low 2 range. Other medical issues include paroxysmal atrial fibrillation with flecainide, Xarelto, though recently held. Medically managed hypertension, hyperlipidemia, carotid artery disease. ALLERGIES: SULFA. MEDICATIONS: As listed in the MFR. SOCIAL HISTORY: Nondrinker, nonsmoker. FAMILY HISTORY: Positive for stroke and rheumatoid arthritis in her mother. REVIEW OF SYSTEMS: Negative for any recent blood loss. She otherwise has felt well until this issue with increasing weakness. Remaining of system as in the history of present illness. PHYSICAL EXAMINATION: GENERAL: Shows her to be alert and oriented. HEENT: Normocephalic. Mouth is clear. NECK: Supple. CHEST: Clear. CARDIOVASCULAR: Normal S1, S2, pacer. ABDOMEN: Soft with no palpable splenomegaly. LYMPHATICS: Show no worrisome adenopathy. [facility] [address] [place] [address] CONSULTATION Name: VIMAL STOLL Room #: 214-P [facility] IN ..#: [id number] Admission: 05/24/19 Attend Phys: Josh Carpenter MD Discharge: 05/30/19 Date of : 50 Report #: [id number] EXTREMITIES: No clubbing, cyanosis or edema. NEUROLOGIC: No focal localized signs. PSYCHIATRIC: Not agitated or confused. LABORATORY DATA: Shows almost 4 g of proteinuria along with markedly elevated free light chain and a normochromic normocytic anemia. ASSESSMENT: Probable underlying multiple myeloma. We discussed that her anemia may hypoproliferative unable for her to reach the blood level rechecks. PLAN: We discussed obtaining a bone survey to rule out malignant bone lesions as well as bone marrow, electrolyte and ____ studies. Thanks very much for asking us to see her in consultation and allowing me to participate in her care. <ELECTRONICALLY SIGNED> By: Lyubov Heck MD 06/01/19 2150 0820 [id number] Lyubov Heck MD /nt
== END 2019-05-30 19:00 | disposition home or self-care (01) | DRG 391 ==
LOC: 2N 15:03 → ENTRNSPT 05-30 18:38 → 2N 05-30 19:00
PROVIDERS: Hospitalist; Internal Medicine Gastroenterology; Internal Medicine Nephrology; Nurse Practitioner; Nurse Practitioner Acute Care; Specialist; ADMIT Internal Medicine Cardiovascular Disease
DX: K29.70 Gastritis, unspecified, without bleeding (principal); I50.33 Acute on chronic diastolic (congestive) heart failure; K55.21 Angiodysplasia of colon with hemorrhage; D62 Acute posthemorrhagic anemia; N17.9 Acute kidney failure, unspecified; E46 Unspecified protein-calorie malnutrition; I13.0 Hypertensive heart and chronic kidney disease with heart failure and stage 1 through stage 4 chronic kidney disease, or unspecified chronic kidney disease; C90.00 Multiple myeloma not having achieved remission; D12.2 Benign neoplasm of ascending colon; D12.3 Benign neoplasm of transverse colon; E11.22 Type 2 diabetes mellitus with diabetic chronic kidney disease; I65.23 Occlusion and stenosis of bilateral carotid arteries; N18.3 Chronic kidney disease, stage 3 (moderate); I08.3 Combined rheumatic disorders of mitral, aortic and tricuspid valves; K21.9 Gastro-esophageal reflux disease without esophagitis; I25.10 Atherosclerotic heart disease of native coronary artery without angina pectoris; K59.00 Constipation, unspecified; E11.51 Type 2 diabetes mellitus with diabetic peripheral angiopathy without gangrene; K44.9 Diaphragmatic hernia without obstruction or gangrene; D63.8 Anemia in other chronic diseases classified elsewhere; J44.9 Chronic obstructive pulmonary disease, unspecified; K22.70 Barrett's esophagus without dysplasia; M79.7 Fibromyalgia; E78.5 Hyperlipidemia, unspecified; I48.0 Paroxysmal atrial fibrillation; Z96.651 Presence of right artificial knee joint; Z95.820 Peripheral vascular angioplasty status with implants and grafts; Z87.891 Personal history of nicotine dependence; Z86.010 Personal history of colon polyps; Z68.32 Body mass index [BMI] 32.0-32.9, adult; I25.2 Old myocardial infarction; Z79.01 Long term (current) use of anticoagulants; Z79.84 Long term (current) use of oral hypoglycemic drugs; Z79.899 Other long term (current) drug therapy; Z88.2 Allergy status to sulfonamides; Z82.49 Family history of ischemic heart disease and other diseases of the circulatory system; Z82.3 Family history of stroke; Z82.69 Family history of other diseases of the musculoskeletal system and connective tissue; Z80.0 Family history of malignant neoplasm of digestive organs; K57.90 Diverticulosis of intestine, part unspecified, without perforation or abscess without bleeding
CPT/HCPCS: 10081; 10797; 62110; 62900